=== PATIENT | female | born 1965 | race Caucasian/White ===

== ENCOUNTER 2016-07-14 21:02 | Emergency (ER) | payer BC ==
[~2016-07-14] VITALS: Ht 193 cm; Wt 75.1 kg
[~2016-07-14 21:02] MED LIST: Levaquin PO; NOHOMEMEDS
[2016-07-14 21:34] LABS: HEMATOCRIT 38.1 % (36.0-46.0); MCH 27.1 PG (29.0-34.0); MCHC 32.8 G/DL (30.0-36.0); MCV 82.6 FL (83-99); MEAN PLAT.VOLUME 9.9 uM^3 (9.5-12.4); PLATELET COUNT 149 K/uL (156-360); RBC DIS.WIDTH-CV 13.5 % (11.8-14.6); RBC DIS.WIDTH-SD 39.9 % (39-53); RED BLOOD COUNT 4.61 M/uL (3.80-5.20); WHITE BLOOD COUNT 2.7 K/uL (4.1-10.2)
[2016-07-14 21:43] LABS: CHLORIDE 103 mEq/L (99-109); POTASSIUM 3.8 mEq/L (3.7-5.4); SODIUM 138 mEq/L (136-147)
[2016-07-14 21:45] LABS: GLUCOSE 97 mg/dL (70-99)
[2016-07-14 21:46] LABS: ANION GAP 7 MEQ/L (2-14)
[2016-07-14 21:49] LABS: GFR ESTIMATE (CALCULATED) > 59 mL/min/; UREA NITROGEN (BUN) 13 mg/dL (9-23)
[2016-07-15] MEDS ORDERED: TESSALON PERLE100 MG PO (00:05)
[2016-07-15] MEDS ORDERED: PREDNISONE20 MG PO (00:05)
[2016-07-15 00:12] VITALS: BP 138/92
== END 2016-07-15 00:18 | disposition home or self-care (01) ==
LOC: EME 21:02
DX: J20.9 Acute bronchitis, unspecified (principal); Z88.1 Allergy status to other antibiotic agents; Z88.0 Allergy status to penicillin
CPT/HCPCS: 71020; 80048; 85027; 94640; 99281; 99284; J7512